=== PATIENT | female | born 1980 | race Caucasian/White ===

== ENCOUNTER 2016-05-10 08:34 | Emergency (ER) | payer OTHER, MEDICAID | END 2016-05-10 11:57 | disposition home or self-care (01) | LOC: ER 08:34 | DX: S86.819A Strain of other muscle(s) and tendon(s) at lower leg level, unspecified leg, initial encounter (principal); Z79.899 Other long term (current) drug therapy; F17.210 Nicotine dependence, cigarettes, uncomplicated | CPT/HCPCS: 36415; 80053; 84703; 93971 ==